=== PATIENT | female | born 1995 | race Hispanic/Latino ===

== ENCOUNTER 2018-07-27 09:26 | Outpatient (CLI) | payer BC | END 2018-07-27 09:27 | disposition home or self-care (01) | LOC: BICULT 09:26 | PROVIDERS: ATTEND Family Medicine | DX: Z34.00 Encounter for supervision of normal first pregnancy, unspecified trimester (principal) | CPT/HCPCS: 76805 ==

== ENCOUNTER 2018-12-13 19:47 | Inpatient (IN) | payer BC ==
[2018-12-13] MEDS ORDERED: Ondansetron PF 4 MG/2 ML Vial IVP PRN (20:30)
[2018-12-13] MEDS ORDERED: NS / Oxytocin 40 units/1000ml 1,000 ML IV PRN (20:30)
[2018-12-13] MEDS ORDERED: Butorphanol Tartrate 1 MG/ML VIAL SLOW IVP PRN (20:30)
[2018-12-13] MEDS ORDERED: HYDROcodone/Acetaminophen 5/325 mg Tablet PO PRN (20:30)
[2018-12-13] MEDS ORDERED: Zolpidem Tartrate 5 MG TAB PO PRN (20:30)
[2018-12-13] MEDS ORDERED: NS w/ Oxytocin 10 units 500 ML IV SCH ×2 (20:30)
[2018-12-13] MEDS ORDERED: Acetaminophen/Codeine 30-300mg Tablet PO PRN (20:30)
[2018-12-13] MEDS ORDERED: Ibuprofen 800 MG TAB PO PRN (20:30)
[2018-12-13] MEDS ORDERED: Promethazine HCl 25 MG/ML VIAL IM PRN (20:30)
[2018-12-13] MEDS ORDERED: Lidocaine 1% (PF) 30 ML VIAL SC PRN (20:30)
[2018-12-13] MEDS ORDERED: Acetaminophen 500 MG TAB PO PRN (20:30)
[2018-12-13] MEDS: Lactated Ringer's 1,000 ML IV SCH (20:30)
[2018-12-13] MEDS ORDERED: Misoprostol 200 MCG TAB PR PRN (20:30)
[2018-12-13 20:55] LABS: Hemoglobin 12.4 g/dL (12.0-16.0); Mean Corpuscular HGB CONC 34.2 g/dL (32.0-36.0); Mean Corpuscular Hemoglobin 31.1 pg (27.0-31.0); Mean Corpuscular Volume 90.9 fL (78.0-98.0); Mean Platelet Volume 9.9 fL (7.4-10.4); Platelet Count 173 thou/uL (130-400); RBC Distribution Width 11.8 % (11.5-14.5); White Blood Cell (WBC) Count 9.6 thou/uL (4.8-10.8)
[2018-12-13] MEDS: Misoprostol 100 MCG TAB VAG SCH (21:15)
[2018-12-13 21:19] VITALS: BMI 23.0
[2018-12-13 21:26] LABS: Syphilis Antibody Nonreactive (Nonreactive); Syphilis Antibody Index 0.05 S/CO (<1.00 Non-Reactive)
[2018-12-13 23:49] LABS: HBSAg Index 0.23 S/CO (0-0.99); Hep B Surf Ag Non-Reactive S/CO (NonReactive)
[2018-12-14] MEDS: Misoprostol 100 MCG TAB VAG SCH ×3 (00:20→10:45)
[2018-12-14] MEDS: Lactated Ringer's 1,000 ML IV SCH (01:30)
[2018-12-14] MEDS ORDERED: Fentanyl 4 mcg/Bup 0.1% Cadd 100 ML ONE (02:19)
[2018-12-14] MEDS ORDERED: Acetaminophen 325 MG TAB PO PRN (03:25)
[2018-12-14] MEDS ORDERED: ePHEDrine/0.9% NaCl/PF SYRINGE 50 mg/10 ml SLOW IVP PRN (03:25)
[2018-12-14] MEDS ORDERED: Promethazine HCl 25 MG/ML VIAL IM PRN (03:25)
[2018-12-14] MEDS ORDERED: Eucerin (Mineral Oil/Petrolatum,White) 30 gm Jar TOP PRN (03:25)
[2018-12-14] MEDS ORDERED: Lactated Ringer's 500 ML IV PRN (03:25)
[2018-12-14] MEDS ORDERED: diphenhydrAMINE 50 MG/ML VIAL IVP PRN (03:25)
[2018-12-14] MEDS ORDERED: Naloxone HCl 0.4 mg/ml Vial IVP PRN ×2 (03:25)
[2018-12-14] MEDS ORDERED: Ondansetron PF 4 MG/2 ML Vial IVP PRN ×2 (03:25→10:00)
[2018-12-14] MEDS ORDERED: Fentanyl 4 mcg/Bupivacaine 0.1% Cassette 100 ML EPIDURAL SCH (03:30)
[2018-12-14] MEDS ORDERED: Communication Order-Pharmacy FS SCH (03:30)
[2018-12-14] MEDS ORDERED: Lidocaine 1% (PF) 30 ML VIAL ONE (06:01)
[2018-12-14] MEDS ORDERED: NS / Oxytocin 40 units/1000ml 1,000 ML ONE (06:01)
[2018-12-14] MEDS ORDERED: Bisacodyl 10 MG SUPP PR PRN (10:00)
[2018-12-14] MEDS ORDERED: diphenhydrAMINE 25 MG CAP PO PRN (10:00)
[2018-12-14] MEDS ORDERED: Acetaminophen/Codeine 30-300mg Tablet PO PRN (10:00)
[2018-12-14] MEDS ORDERED: Preparation H Ointment 28 GM TUBE PR PRN (10:00)
[2018-12-14] MEDS ORDERED: Benzocaine/Menthol 20-0.5% 60 ML CAN TOP PRN (10:00)
[2018-12-14] MEDS ORDERED: Milk Of Magnesia 30 ML UDCUP PO PRN (10:00)
[2018-12-14] MEDS ORDERED: NS / Oxytocin 40 units/1000ml 1,000 ML IV SCH (10:00)
[2018-12-14] MEDS ORDERED: Lanolin Ointment 7 GM TUBE TOP PRN (10:00)
[2018-12-14] MEDS ORDERED: HYDROcodone/Acetaminophen 5/325 mg Tablet PO PRN (10:00)
[2018-12-14] MEDS ORDERED: Docusate Calcium (SURFAK) 240 MG CAP PO SCH (10:15)
[2018-12-14] MEDS ORDERED: Ferrous Sulfate 325 MG TAB PO SCH (10:15)
[2018-12-14] MEDS ORDERED: Prenatal Vitamin 1 TAB PO SCH (10:15)
[2018-12-14] MEDS: Ibuprofen 800 MG TAB PO SCH ×2 (13:53→21:32)
[2018-12-14] MEDS: Ferrous Sulfate 325 MG TAB PO SCH (15:27)
[2018-12-14] MEDS: Docusate Calcium (SURFAK) 240 MG CAP PO SCH (21:32)
[2018-12-15] MEDS: Ibuprofen 800 MG TAB PO SCH ×3 (08:50→23:53)
[2018-12-15] MEDS: Ferrous Sulfate 325 MG TAB PO SCH ×2 (08:57→16:54)
[2018-12-15] MEDS ORDERED: Prenatal Vitamin 1 TAB PO SCH (09:00)
[2018-12-15] MEDS: Docusate Calcium (SURFAK) 240 MG CAP PO SCH ×2 (09:32→23:53)
[2018-12-16 08:12] VITALS: BP 111/77; TEMP 98.3
[2018-12-16] MEDS: Ibuprofen 800 MG TAB PO SCH (09:32)
[2018-12-16] MEDS: Ferrous Sulfate 325 MG TAB PO SCH (09:32)
[2018-12-16] MEDS: Docusate Calcium (SURFAK) 240 MG CAP PO SCH (09:32)
== END 2018-12-16 11:00 | disposition home or self-care (01) | DRG 807 ==
LOC: L&D 19:47 → 3SW 12-14 09:41
PROVIDERS: ADMIT Family Medicine; ATTEND Family Medicine
PROC: 10E0XZZ Delivery of Products of Conception, External Approach (ICD-10-PCS; principal; 2018-12-14)
PROC: 3E0E3GC Introduction of Other Therapeutic Substance into Products of Conception, Percutaneous Approach (ICD-10-PCS; 2018-12-14)
PROC: 3E033VJ Introduction of Other Hormone into Peripheral Vein, Percutaneous Approach (ICD-10-PCS; 2018-12-14)
DX: O36.5930 Maternal care for other known or suspected poor fetal growth, third trimester, not applicable or unspecified (principal); Z37.0 Single live birth; Z3A.38 38 weeks gestation of pregnancy; O26.13 Low weight gain in pregnancy, third trimester
CPT/HCPCS: 36415; 51702; 85027; 86780; 86850; 86900; 86901; 87340; 88307; J2001

== ENCOUNTER 2020-12-06 10:52 | Day surgery (SDC) | payer BC ==
[2020-12-06 11:37] VITALS: BMI 23.0
[2020-12-06] MEDS ORDERED: hydrALAZINE 20 MG/ML VIAL SLOW IVP PRN (12:34)
--- NOTE | 2020-12-06 13:29 | PRG ---
DATE OF SERVICE: 12/06/2020 PRIMARY OB: Camille Clay MD CHIEF COMPLAINT: Pelvic pressure and pain. HISTORY OF PRESENT ILLNESS: The patient is a 25-year-old, G2, P1 female with an intrauterine at 33 weeks and 5 days, presenting with a 2-week history of pelvic pressure and pain, that she reports became much worse last night than usual and came in for evaluation. The patient describes this pain as dull and bruising. She reports it is worse at the end of the day. She does report that she is fairly active and walks about one to two miles a day. She that the pain is worse with activity and movement such as lifting and rolling over in bed. She denies dysuria, change in vaginal discharge or vaginal bleeding. She denies fever, cough, headache, chest pain, shortness of breath, nausea, vomiting, diarrhea, or constipation, hip problems, knee problems, muscle weakness. She denies new rashes. She denies vaginal bleeding, urinary urgency or frequency, change in discharge. PAST MEDICAL HISTORY: Negative. She does have a history of a stress fracture in her lower vertebrae, status post back surgery requiring screws, had subsequent removal. ALLERGIES: ZITHROMAX. MEDICATIONS: vitamins, sertraline 25 mg daily. SOCIAL HISTORY: Denies drug, alcohol, or tobacco use during the . Reports occasional social drinking. OB LABS: Blood type is A positive. Antibody screen is negative. VDRL is nonreactive. Hepatitis B surface antigen is negative. HIV is nonreactive. GC and chlamydia negative. She is rubella immune. Urine culture is positive for group B strep. Diabetes screen is 92. REVIEW OF SYSTEMS: Per HPI. PHYSICAL EXAMINATION: VITAL SIGNS: Blood pressure 109/76, heart rate of 77, respiratory rate of 16, saturating 100% on room air, temperature 98.9. GENERAL: She appears to be in no acute distress. She is alert, oriented, cooperative, and pleasant to interact. HEAD: Normocephalic, atraumatic. LUNGS: Clear to auscultation bilaterally. HEART: Regular rate and rhythm. ABDOMEN: Gravid, soft, nontender. She has no suprapubic tenderness. No tenderness with deviation of the uterus. She has no tenderness at the perineum. On speculum exam, she has physiologic discharge that appears healthy. No erythema or lesions of the vagina or cervix. On digital exam, she has no tenderness posteriorly. No tenderness early in the posterior fornix. Tenderness seems to be focused mainly anteriorly head is palpable. The patient did report that the pressure from the exam actually helped to alleviate some of the pain that she was feeling. heart tracing shows the fetus with a baseline in the 130s with moderate long-term variability, positive 15 x 15 accelerations, no decelerations. The patient does have some irritability, but not felt by the patient. On bimanual exam, cervix is closed and thick. ASSESSMENT AND PLAN: The patient is a 25-year-old active female with an intrauterine at 33 weeks and 3 days, having pelvic pressure that is most consistent with musculoskeletal pain of . The pain worsens as the day progresses. It is more of a heavy, described as a dull or bruising feeling, seems to be focused anteriorly with the head is putting the most pressure on the pelvis. The patient is active and walks about one to two miles a day and does report that activity seems to help her symptoms improved some. Fetus has a category 1 tracing and reactive NST. We did discuss the use of a belly band to help elevate the uterus relieving some of the pressure and regular Tylenol. Also to consider if the simple measures do not sufficiently relieve her pain and discomfort to consider other modalities such as rn homecare, warm tub baths, light massage can also be considered. Otherwise, the patient is being discharged home. She has a followup appointment with Dr. Clay in the near future that she has been encouraged to keep. Job ID: [id number]
== END 2020-12-06 12:32 | disposition home or self-care (01) ==
LOC: L&D/OP 10:52
PROVIDERS: ATTEND Student in an Organized Health Care Education/Training Program
DX: O99.891 Other specified diseases and conditions complicating pregnancy (principal); R10.2 Pelvic and perineal pain; Z3A.33 33 weeks gestation of pregnancy; Z79.899 Other long term (current) drug therapy; Z88.1 Allergy status to other antibiotic agents

== ENCOUNTER 2025-10-26 10:26 | Outpatient (CLI) | payer BC | END 2025-10-26 10:27 | disposition home or self-care (01) | LOC: BICRAD 10:26 | PROVIDERS: ATTEND Family Medicine | DX: M54.2 Cervicalgia (principal); M25.511 Pain in right shoulder; G89.29 Other chronic pain; M47.812 Spondylosis without myelopathy or radiculopathy, cervical region; M50.821 Other cervical disc disorders at C4-C5 level; M50.822 Other cervical disc disorders at C5-C6 level | CPT/HCPCS: 72050 ==